=== PATIENT | male | born 1975 | race African-American/Black ===

== ENCOUNTER 2019-09-02 14:02 | Emergency (ER) | payer MEDICAID, MEDICARE ==
[~2019-09-02] VITALS: Ht 182.9 cm; Wt 81.5 kg
[~2019-09-02 14:02] MED LIST: DIVA-76 PO
[2019-09-02] MEDS ORDERED: LITH300C3 PO (14:50)
[2019-09-02] MEDS ORDERED: BUPR75 PO (14:50)
[2019-09-02 15:05] LABS: HEMATOCRIT 24.3 % (41-53); HEMOGLOBIN 7.5 g/dL (13.5-17.5); MEAN CORPUSCULAR HEMOGLOBIN 26.3 pg (26.0-34.0); MEAN CORPUSCULAR VOLUME 85 fL (80-100); PLATELET COUNT (AUTO) 368 K/uL (150-450); RED BLOOD CELL COUNT(AUTO) 2.87 MIL/uL (4.50-5.90); RED CELL DISTRIBUTION WIDTH 19.6 % (11.5-14.5)
[2019-09-02 15:16] LABS: ANION GAP 8 mmol/L (8-16); CALCIUM, TOTAL 9.3 mg/dL (8.8-10.5); CARBON DIOXIDE 29 mmol/L (22-29); CHLORIDE 95 mmol/L (98-107); CREATININE 0.84 mg/dL (0.60-1.30); GLOMERULAR FILTR. RATE CALC > 60 mL/min (>60); GLUCOSE,RANDOM 91 mg/dL (70-110); SODIUM SERUM 132 mmol/L (136-145); UREA NITROGEN, BLOOD 17 mg/dL (7-18)
[2019-09-02 15:22] LABS: ALANINE AMINOTRANSFERASE 34 U/L (12-78); ALBUMIN 3.8 g/dL (3.4-5.0); ALKALINE PHOSPHATASE 84 U/L (46-116); ASPARTATE AMINOTRANSFERASE 35 U/L (15-37); BILIRUBIN,TOTAL 0.5 mg/dL (0.1-1.0); TOTAL PROTEIN, SERUM 8.6 g/dL (6.4-8.2)
[2019-09-02 15:37] LABS: VALPROIC ACID < 3 mcg/mL (50-100)
[2019-09-02 15:42] LABS: AMPHET/METH SCREEN,URINE NEGATIVE (NEGATIVE); BARBITURATE SCREEN, URINE NEGATIVE (NEGATIVE); BENZODIAZEPINES SCREEN,URINE NEGATIVE (NEGATIVE); CANNABINOID SCREEN,URINE NEGATIVE (NEGATIVE); COCAINE SCREEN,URINE NEGATIVE (NEGATIVE); METHADONE SCREEN, URINE NEGATIVE (NEGATIVE); OPIATE SCREEN,URINE NEGATIVE (NEGATIVE)
[2019-09-02 15:43] LABS: PHENCYCLIDINE SCREEN,URINE NEGATIVE (NEGATIVE)
[2019-09-02 15:52] LABS: BAND NEUTROPHILS % (MANUAL) 0 % (0-5)
[2019-09-02 15:53] LABS: LYMPHOCYTES % (MANUAL) 15 % (22-44); MONOCYTES % (MANUAL) 16 % (2-9); SEGMENTED NEUTROPHILS % 69 % (40-70)
[2019-09-02 16:29] LABS: LITHIUM < 0.20 mmol/L (0.60-1.20)
[2019-09-02 18:54] VITALS: BP 133/77
== END 2019-09-02 20:30 | disposition home or self-care (01) ==
LOC: EMS 14:09
DX: F31.9 Bipolar disorder, unspecified (principal); D64.9 Anemia, unspecified; F17.210 Nicotine dependence, cigarettes, uncomplicated; F12.90 Cannabis use, unspecified, uncomplicated
CPT/HCPCS: 36415; 80053; 80164; 80178; 80307; 85025; 99285; G0480